=== PATIENT | male | born 1945 | race Caucasian/White ===

== ENCOUNTER 2018-03-25 12:10 | Day surgery (SDC) | payer OTHER ==
[~2018-03-25] VITALS: Ht 182.9 cm; Wt 100.0 kg
[~2018-03-25 12:10] MED LIST: AMLO10 PO; ATOR10 PO; ATORVASTATIN CA10 MG PO; Amlodipine Besy10 MG PO; Aspirin EC81 MG; Aspirin EC81 MG PO; CELE200 PO; DULO60 PO; INVOKAMET 50-11 EACH PO; JANUMET XR 50-1 EAC1; LISI20 PO; MULTI VITAMIN1 EACH PO; Multiple Vitam1 EAC1; OMEP20ER; Prinivil10 MG PO; QNASL8.7 GM; SYNJARDY XR 251 EACH PO; TAMS.4ER PO; ZOLP10 PO
--- NOTE | 2018-03-25 14:15 | NUR ---
03/25/18 1415 Soha Pino GROUNDING PAD ON RIGHT FLANK
== END 2018-03-25 14:36 | disposition home or self-care (01) ==
LOC: ORSCSDS 12:10
DX: Z12.11 Encounter for screening for malignant neoplasm of colon (principal); D12.2 Benign neoplasm of ascending colon; D12.3 Benign neoplasm of transverse colon; D12.5 Benign neoplasm of sigmoid colon; K62.1 Rectal polyp; K64.4 Residual hemorrhoidal skin tags; K64.8 Other hemorrhoids; K57.30 Diverticulosis of large intestine without perforation or abscess without bleeding; Z86.010 Personal history of colon polyps; E11.9 Type 2 diabetes mellitus without complications; I10 Essential (primary) hypertension; Z79.82 Long term (current) use of aspirin; Z79.899 Other long term (current) drug therapy; Z87.891 Personal history of nicotine dependence
CPT/HCPCS: 82947; 88305; J7120

== ENCOUNTER 2018-04-16 06:41 | Day surgery (SDC) | payer OTHER ==
[~2018-04-16] VITALS: Ht 182.9 cm; Wt 103.6 kg
--- NOTE | 2018-04-16 14:48 | NUR ---
04/16/18 1448 James Taylor LATE ENTRY NARRATIVE PATIENT INTO SDU RECLINER, VSS, TOLERATING PO FLUIDS WELL, DENIES PAIN AND N/V AT THIS TIME. DC INSTRUCTIONS REVIEWED WITH PATIENT, NO QUESTIONS AT THIS MOMENT. NURSE ASSISTED PATIENT WALK TO HIS RIDE HOME.
== END 2018-04-16 09:30 | disposition home or self-care (01) ==
LOC: ORSCSDS 06:41
PROVIDERS: Ophthalmology
PROC: 08RK3JZ Replacement of Left Lens with Synthetic Substitute, Percutaneous Approach (ICD-10-PCS; principal; 2018-04-16 08:30)
PROC: 08B53ZZ Excision of Left Vitreous, Percutaneous Approach (ICD-10-PCS; principal; 2018-04-16 08:30)
DX: H25.12 Age-related nuclear cataract, left eye (principal); I10 Essential (primary) hypertension; E11.9 Type 2 diabetes mellitus without complications; Z79.899 Other long term (current) drug therapy; Z79.82 Long term (current) use of aspirin; Y65.8 Other specified misadventures during surgical and medical care
CPT/HCPCS: 82947; J2001; J2250; J3010; J3301; J7120; V2632

== ENCOUNTER → 2018-08-15 | Outpatient (CLI) | payer OTHER | END | disposition home or self-care (01) | LOC: LAB SHORT 13:32 → LAB 13:32 | DX: L08.9 Local infection of the skin and subcutaneous tissue, unspecified (principal) | CPT/HCPCS: 87070; 87075; 87205 ==

== ENCOUNTER → 2018-09-29 | Outpatient (CLI) | payer OTHER | LOC: LAB 16:21 → LAB SHORT 16:21 | DX: L72.3 Sebaceous cyst (principal) | CPT/HCPCS: 87070; 87075; 87205 ==

== ENCOUNTER 2019-08-26 07:10 | Day surgery (SDC) | payer OTHER ==
[~2019-08-26] VITALS: Ht 182.9 cm; Wt 99.1 kg
[~2019-08-26 07:10] MED LIST changes: +CELECOXIB200 M1
--- NOTE | 2019-08-26 09:51 | NUR ---
08/26/19 0951 Carole De Anda PT SITTING COMFORTABLY IN CHAIR. VITAL SIGNS STABLE. AWAITING RIDE HOME FROM . TOLERATING PO. NO PAIN OR NAUSEA.
== END 2019-08-26 09:56 | disposition home or self-care (01) ==
LOC: ORSCSDS 07:10
PROVIDERS: Ophthalmology
PROC: 08RJ3JZ Replacement of Right Lens with Synthetic Substitute, Percutaneous Approach (ICD-10-PCS; principal; 2019-08-26 09:00)
DX: H25.11 Age-related nuclear cataract, right eye (principal); I10 Essential (primary) hypertension; E78.5 Hyperlipidemia, unspecified; E11.9 Type 2 diabetes mellitus without complications; Z79.899 Other long term (current) drug therapy; Z79.82 Long term (current) use of aspirin; K21.9 Gastro-esophageal reflux disease without esophagitis; Z79.84 Long term (current) use of oral hypoglycemic drugs
CPT/HCPCS: 82947; J2001; J2250; J3010; J3301; J7040; J7120; V2632